=== PATIENT | female | born 1975 | race Caucasian/White ===

== ENCOUNTER 2016-07-08 09:28 | Emergency (ER) | payer MEDICAID ==
[~2016-07-08] VITALS: Ht 157.5 cm; Wt 75.5 kg
[~2016-07-08 09:28] MED LIST: CIPR500T4 PO; IBUP800T25 PO; METR500T PO; PERCOCET PO; SENN-25 PO
[2016-07-08 09:31] VITALS: Ht 157.5 cm; Wt 75.5 kg
[2016-07-08] MEDS ORDERED: LIDOCAINE 1% (MDV) 20 ML INJ SC ONE (10:30)
[2016-07-08] MEDS ORDERED: IBUPROFEN 600 MG TAB PO ONE (10:30)
[2016-07-08] MEDS ORDERED: DOXY100T20 PO (11:04)
[2016-07-08] MEDS ORDERED: IBUP-1542 PO (11:04)
--- NOTE | 2016-07-08 11:06 | ERD ---
ER Documentation Chief Complaint Date/Time DATE: 07/08/16 TIME: 11:04 Chief Complaint R SIDE OF RIBS WITH POSSIBLE RASH/ABSCESS HPI This 40-year-old female presents with some redness and swelling on her right chest wall. There has been a small bump there for the last year or more. She denies fevers, vomiting, shortness with chest pain. ROS All systems reviewed and are negative except as per history of present illness. Medications Home Meds Active Scripts Doxycycline Hyclate* (Doxycycline Hyclate*) 100 Mg Tablet.dr, 100 MG PO BID for 7 Days, TAB Prov:AZAM TAVARES MD 07/08/16 Ibuprofen* (Motrin*) 600 Mg Tab, 600 MG PO Q6, #15 TAB Prov:AZMA TAVARES MD 07/08/16 Sennosides/Docusate Sodium (Senna-Time S Tablet) 1 Tab Tab, 1 TAB PO BID for 7 Days, TAB Prov:TARIK SAM MD 03/03/15 Oxycodone Hcl/Acetaminophen (Percocet) 1 Tab Tab, 1 TAB PO Q8H for 7 Days, TAB Prov:TARIK SAM MD 03/03/15 Metronidazole* (Flagyl*) 500 Mg Tab, 500 MG PO Q8 for 7 Days, TAB Prov:TARIK SAM MD 03/03/15 Ibuprofen* (Ibuprofen*) 800 Mg Tab, 800 MG PO Q8 for 10 Days, TAB Prov:TARIK SAM MD 03/03/15 Ciprofloxacin Hcl* (Ciprofloxacin Hcl*) 500 Mg Tab, 500 MG PO BID@06,18 for 7 Days, TAB Prov:TARIK SAM MD 03/03/15 Allergies Allergies: Coded Allergies: Penicillins (Verified Allergy, Mild, RASH, 07/08/16) PMhx/Soc History of Surgery: Yes (cataract, ) Anesthesia Reaction: No Hx Neurological Disorder: No Hx Respiratory Disorders: No Hx Cardiac Disorders: No Hx Psychiatric Problems: No Hx Miscellaneous Medical Probl: No Hx Alcohol Use: No Hx Substance Use: No Hx Tobacco Use: No Smoking Status: Never smoker Physical Exam Vitals Vital Signs Date Time Temp Pulse Resp B/P Pulse Ox O2 Delivery O2 Flow Rate FiO2 07/08/16 09:31 98.6 80 18 137/75 100 Physical Exam Const: [] Alert, [id number] per Head: Atraumatic Eyes: Normal Conjunctiva ENT: Normal External Ears, Nose and Mouth. Neck: Full range of motion..~ No meningismus. Resp: Clear to auscultation bilaterally Cardio: Regular rate and rhythm, no murmurs Abd: Soft, non tender, non distended. Normal bowel sounds Skin: No petechiae or rashes. There is approximately 2 x 2 centimeter erythematous fluctuant nodule with a small pointing poRE Back: No midline or flank tenderness Ext: No cyanosis, or edema Neur: Awake and alert Psych: Normal Mood and Affect Results 24 hrs Current Medications Medications (Trade) Dose Ordered Sig/Rosa Route PRN Reason Start Time Stop Time Status Last Admin Dose Admin Ibuprofen (Motrin) 600 mg ONCE ONCE PO 07/08/16 10:30 07/08/16 10:31 DC 07/08/16 10:26 Lidocaine (Xylocaine 1% (Mdv) 20 ml) 20 ml ONCE ONCE SC 07/08/16 10:30 07/08/16 10:31 DC Procedures/MDM Patient presents with a right chest wall lesion consistent with an irritated or infected sebaceous cyst. Procedure note-the right abdominal wall was prepped with Betadine. 2 cc of lidocaine was used for formal local anesthesia. #11 scalpel was used to incise the cyst. Infected sebaceous material was expressed and a small portion of the sac was removed. She tolerated procedure well and the wound was packed with approximately 5 cm of quarter-inch gauze and the wound was dressed. Patient will be discharged home instructions for gauze removal in 2-3 days otherwise return sooner for worsening redness, fevers, new symptoms. She will be discharged home the course of ibuprofen and doxycycline Departure Diagnosis: Primary Impression: Abscess Additional Impression: Sebaceous cyst Condition: Stable Patient Instructions: Sebaceous Cyst, Infected (I And D) Additional Instructions: cheque otro vez en 2-3 garrsion para saca gauze, mas pronto para mas molina, echada, fiebre. AZAM TAVARES MD Jul 08, 2016 11:06
== END 2016-07-08 11:16 | disposition home or self-care (01) ==
LOC: FTE 09:28
DX: L02.213 Cutaneous abscess of chest wall (principal); L72.3 Sebaceous cyst
CPT/HCPCS: 10061; Z7502; Z7610

== ENCOUNTER 2016-07-10 09:28 | Emergency (ER) | payer MEDICAID ==
[~2016-07-10] VITALS: Ht 162.6 cm; Wt 74.5 kg
[~2016-07-10 09:28] MED LIST changes: +DOXY100T20 PO; +IBUP-1542 PO
[2016-07-10 09:46] VITALS: Ht 162.6 cm; Wt 74.5 kg
--- NOTE | 2016-07-10 11:54 | ERD ---
ER Documentation Chief Complaint Date/Time DATE: 07/10/16 TIME: 11:51 Chief Complaint WOUND CHECK HPI 40-year-old female patient with no significant past medical history presents to the ED for a wound check of an abscess drained on her right rib chest/right upper quadrant region x 2 days ago. Patient reports that this has been going on for 1 year. Denies any chest pain, shortness of breath, wheezing. Patient reports that she filled her prescription for ibuprofen and doxycycline. Patient denies any fever, chills, abdominal pain, nausea, vomiting, diarrhea, chills, increased redness or swelling. States that she is taking it consistently. Reports that her symptoms have improved. ROS All systems reviewed and are negative except as per history of present illness. Medications Home Meds Active Scripts Doxycycline Hyclate* (Doxycycline Hyclate*) 100 Mg Tablet.dr, 100 MG PO BID for 7 Days, TAB Prov:AZAM TAVARES MD 07/08/16 Ibuprofen* (Motrin*) 600 Mg Tab, 600 MG PO Q6, #15 TAB Prov:AZAM TAVARES MD 07/08/16 Sennosides/Docusate Sodium (Senna-Time S Tablet) 1 Tab Tab, 1 TAB PO BID for 7 Days, TAB Prov:TARIK SAM MD 03/03/15 Oxycodone Hcl/Acetaminophen (Percocet) 1 Tab Tab, 1 TAB PO Q8H for 7 Days, TAB Prov:TARIK SAM MD 03/03/15 Metronidazole* (Flagyl*) 500 Mg Tab, 500 MG PO Q8 for 7 Days, TAB Prov:TARIK SAM MD 03/03/15 Ibuprofen* (Ibuprofen*) 800 Mg Tab, 800 MG PO Q8 for 10 Days, TAB Prov:TARIK SAM MD 03/03/15 Ciprofloxacin Hcl* (Ciprofloxacin Hcl*) 500 Mg Tab, 500 MG PO BID@06,18 for 7 Days, TAB Prov:TARIK SAM MD 03/03/15 Allergies Allergies: Coded Allergies: Penicillins (Verified Allergy, Mild, RASH, 07/08/16) PMhx/Soc History of Surgery: Yes (cataract, ) Anesthesia Reaction: No Hx Neurological Disorder: No Hx Respiratory Disorders: No Hx Cardiac Disorders: No Hx Psychiatric Problems: No Hx Miscellaneous Medical Probl: No Hx Alcohol Use: No Hx Substance Use: No Hx Tobacco Use: No Smoking Status: Never smoker Physical Exam Vitals Vital Signs Date Time Temp Pulse Resp B/P Pulse Ox O2 Delivery O2 Flow Rate FiO2 07/10/16 09:46 98.7 82 17 119/64 100 Physical Exam Const: [id number], well-nourished. In no acute distress. Head: Atraumatic, normocephalic Eyes: Normal Conjunctiva without injection. No purulent discharge. ENT: Normal external ear, nose. Moist oropharynx without tonsillar exudates. Non -erythematous pharynx. Uvula midline. No drooling. No trismus. Neck: No cervical midline tenderness. Full range of motion. No meningismus. No cervical lymphadenopathy. No JVD. Resp: Clear to auscultation bilaterally. No wheezing, rhonchi, rales, or crackles. No accessory muscle use. No retractions. Cardio: Regular rate and rhythm. No murmurs, rubs or gallops. Abd: Soft, nontender, non distended. Normal bowel sounds. No palpable masses. No rebound tenderness. No guarding. Negative McBurney's point. Negative psoas sign. Negative obturator sign. Skin: No petechiae or rashes. 1 cm incision with iodoform packing noted of the right upper quadrant/right lower chest region with no surrounding erythema, edema noted. No fluctuance. Ext: No cyanosis, or edema. Neur: Awake and alert. Normal gait. Normal coordination. Psych: Normal Mood and Affect Procedures/MDM This is a 40-year-old female patient with no significant past medical history presents to the ED for a wound check of a sebaceous cyst that was incised and drained 2 days ago. Patient is afebrile and nontoxic-appearing. Patient has normal vital signs. The iodoform packing was removed at this time. Patient is appropriate for outpatient management for allowing the incision site for spontaneous drainage. Low suspicion for sepsis, deep space infection, acute abdomen, acute MS, pneumonia, pneumothorax, pleural effusion, cholecystitis, choledocholithiasis or other emergent conditions. Discharge medications: Continue and complete the course of doxycycline. Follow up with primary care physician in 1-2 days. Instructed patient to return to the ED sooner for any worsening symptoms. Patient's questions were answered. Patient understood and agreed with discharge plan. Patient discharged stable. Departure Diagnosis: Primary Impression: Encounter for wound re-check Condition: Stable Patient Instructions: Wound Care, Abscess Drainage Ref[facility]: [facility] Usted se jarvis hecho un examen mdico de control que le indica que no est en juan f condicin que requiera tratamiento urgente en el Departamento de Emergencia. Un estudio ms profundo y el tratamiento de sanz condicin pueden esperar sin ningn riesgo hasta que usted sea atendida/o en el consultorio de sanz mdico o juan f cl kalani. Es responsabilidad suya arreglar juan f fortunato para el seguimiento del pola. MANEJO DE CONDICIONES NO URGENTES EN EL FUTURO 1) Si usted tiene un mdico de atencin primaria: Usted debera llamar a sanz mdico de atencin primaria antes de venir al departamento de emergencia. Despus de las horas de consultorio, sanz doctor o sanz asociado/a est disponible por telfono. El mdico o enfermero de meghan en el servicio telefnico puede asesorarle por gerda medio para atender el problema, o pola contrario se puede programar juan f fortunato. 2) Si usted no tiene un mdico de atencin primaria: Llame al mdico o clnica de referencia que aparece abajo denise las horas de consultorio para hacer juan f fortunato para que le vean. CLINICAS: [facility] [phone] [facility] [phone] [address] [facility] [phone] [facility]. [place] [id number] [phone] [facility]. [place] [id number] [phone] [facility]. [phone] [facility]. [facility] () [place] se jarvis hecho un examen mdico de control que le indica que no est en juan f condicin que requiera tratamiento urgente en el Departamento de Emergencia. Un estudio ms profundo y el tratamiento de sanz condicin pueden esperar sin ningn riesgo hasta que ted sea atendida/o en el consultorio de sanz mdico o juan f cl kalani. Es responsabilidad suya arreglar juan f fortunato para el seguimiento del pola. MANEJO DE CONDICIONES NO URGENTES EN EL FUTURO 1) Si usted tiene un mdico de atencin primaria: [place] debera llamar a sanz mdico de atencin primaria antes de venir al departamento de emergencia. Despus de las horas de consultorio, sanz doctor o sanz asociado/a est disponible por telfono. El mdico o enfermero de meghan en el servicio telefnico puede asesorarle por gerda medio para atender el problema, o pola contrario se puede programar juan f fortunato. 2) Si usted no tiene un mdico de atencin primaria: Llame al mdico o condado institucions de referencia que aparece abajo denise las horas de consultorio para hacer juan f fortunato para que le vean. SI USTED NO PUEDE PAGAR PARA JOLENE UN MEDICO puede ir a: [facility] [address] [place] [address] [facility] [address] [place] [address] [facility] [address] [place] [address] [address] [facility]IA LU[facility] [address] [place] [address] Additional Instructions: Continuar y completar el curso de los antibiticos Llame al doctor MAANA y bull juan f FORTUNATO PARA DENTRO DE 2-3 HAMILTON.Dgale a la secretaria que nosotros le instruimos hacer esta fortunato.Avise o llame si sanz condicin se empeora antes de la fortunato. Regresa aqui si peor o no mejor. BEN ELY PA-C Jul 10, 2016 11:54
== END 2016-07-10 11:17 | disposition home or self-care (01) ==
LOC: FTE 09:28
DX: Z48.01 Encounter for change or removal of surgical wound dressing (principal)
CPT/HCPCS: 99281